=== PATIENT | female | born 1985 | race Caucasian/White ===

== ENCOUNTER 2020-11-22 20:49 | Emergency (ER) | payer MEDICAID ==
--- NOTE | 2020-11-22 21:41 | EDM.PDOC ---
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 She states it has been there for over 8 years and the last couple of months it has gotten worse. States now she has severe pain the last couple of hours. No injury to the elbow. States the last few days she didn't get seen for it. - Related Data Home Meds: Home Meds FLUoxetine HCl [Prozac] 60 mg PO DAILY 11/22/17 [History] busPIRone [Buspar] 30 mg PO TID 11/22/17 [History] Benztropine Mesylate 2 mg PO DAILY 03/07/18 [History] Furosemide 40 mg PO DAILY 03/07/18 [History] Levothyroxine 112 mcg PO DAILY 03/07/18 [History] Brook Carbonate [Lithobid] 600 mg PO DAILY 03/07/18 [History] Paliperidone Palmitate [Invega Sustenna] 1 injection ASDIRECTED 03/07/18 [History] Prazosin HCl [Prazosin] 1 mg PO DAILY 03/07/18 [History] cloNIDine [cloNIDine HCl] 0.1 mg PO TID 11/22/20 [History] Past Medical History - Past Health History Medical/Surgical History: Denies Medical/Surgical History HEENT History: Reports: Impaired Vision CHANGE LEAD History: Reports: , Other (See Below) Other CHANGE LEAD History: breast reduction 2005 Neurological History: Reports: Migraines Psychiatric History: Reports: Anxiety, Depression Endocrine/Metabolic History: Reports: Hypothyroidism Social & Family History - Family History Family Medical History: No Pertinent Family History - Caffeine Use Caffeine Use: Reports: None - Living Situation & Occupation Living situation: Reports: with Family ED ROS GENERAL - Review of Systems Review Of Systems: Comprehensive ROS is negative, except as noted in HPI. ED EXAM, GENERAL - Physical Exam Exam: See Below Exam Limited By: No Limitations General Appearance: Alert, No Apparent Distress Extremities: Other (hard area to the anterior elbow which has been chronic. Increased soft tissue medially which is soft. I do not feel any significant mass. Possibly small hematoma to antecubital area where there is needle weinberg. ) Neurological: No Motor/Sensory Deficits Skin Exam: Dry, Intact. No: Increased Warmth Departure - Departure Time of Disposition: 21:50 Disposition: Home, Self-Care 01 Clinical Impression: Right elbow pain - Discharge Information Forms: ED Department Discharge Additional Instructions: 1) May use KAILEE wrap to elbow, ice, heat, etc... 2) Continue with Tylenol and alternating with ibuprofen for discomfort 3) Advise seeing primary to discuss possible further evaluation 4) Advise not using any needles - Assessment/Plan Plan: Patient did have two needle weinberg in the area of discomfort/hardness. I questions patient about the weinberg and she initially stated it was from a couple months ago. It appeared to be recently upon inspection and she then admitted her friend did try giving her something intravenously but she stopped them. I discussed with her a hematoma, which may be what is causing her the discomfort. Patient may try KAILEE wrap, ice/heat to area for relief. Encourage to continue with Tylenol and ibuprofen for discomfort. Follow up with primary for possible ultrasound or further evaluation. When having conversation with patient she was freely moving and talking with hand gestures showing no sign of discomfort to the right arm. Immediately when discussing her arm she would start crying of pain. I am concerned with patient's vague history.
== END 2020-11-22 22:00 | disposition home or self-care (01) ==
LOC: CC.ED 20:49
DX: M25.521 Pain in right elbow (principal); E03.9 Hypothyroidism, unspecified; Z79.899 Other long term (current) drug therapy
CPT/HCPCS: 99283

== ENCOUNTER 2021-12-27 13:20 | Emergency (ER) | payer MEDICAID ==
[2021-12-27] MEDS ORDERED: Sodium Chloride 0.9% 10 ML Syringe FLUSH PRN (13:55)
[2021-12-27] MEDS: Sodium Chloride 0.9% 1,000 ML IV ONE ×2 (14:22→15:25)
[2021-12-27] MEDS: fentaNYL 50 MCG/ML SDV IVPUSH ONE (14:27)
[2021-12-27] MEDS: LORazepam 2 MG/ML Syringe IVPUSH ONE (14:28)
== END 2021-12-27 16:32 | disposition home or self-care (01) ==
LOC: CC.ED 13:20
DX: L03.114 Cellulitis of left upper limb (principal); L98.492 Non-pressure chronic ulcer of skin of other sites with fat layer exposed; R65.10 Systemic inflammatory response syndrome (SIRS) of non-infectious origin without acute organ dysfunction; Z20.822 Contact with and (suspected) exposure to COVID-19
CPT/HCPCS: 36415; 80053; 83605; 83735; 85025; 87070; 87077; 87186; 96361; 96374; 96375; 99283-25; 99284; J2060; J3010; J7030; U0002